=== PATIENT | female | born 1955 | race Native Hawaiian/Other Pacific Islander ===

== ENCOUNTER 2019-05-20 23:24 | Outpatient (CLI) | payer BC ==
[2019-05-20] MEDS ORDERED: LINZESS72 MCG PO (23:36)
[2019-05-20] MEDS ORDERED: ESTR1TAB13 PO (23:37)
[2019-05-20] MEDS ORDERED: HYDR25TA60 PO (23:39)
[2019-05-20] MEDS ORDERED: ONDANSETRON4 M2 PO (23:39)
[2019-05-20] MEDS ORDERED: LUNESTA3 MG PO (23:40)
== END 2019-05-20 23:27 | disposition short-term general hospital (02) ==
LOC: AMB 23:24
DX: R46.4 Slowness and poor responsiveness (principal); R47.89 Other speech disturbances; R29.810 Facial weakness; R56.9 Unspecified convulsions
CPT/HCPCS: A0425; A0427

== ENCOUNTER 2019-05-20 23:31 | Emergency (ER) | payer BC ==
[~2019-05-20] VITALS: Ht 165.1 cm; Wt 63.5 kg
[2019-05-20] MEDS ORDERED: LINZESS72 MCG PO (23:36)
[2019-05-20] MEDS ORDERED: ESTR1TAB13 PO (23:37)
[2019-05-20] MEDS ORDERED: ONDANSETRON4 M2 PO (23:39)
[2019-05-20] MEDS ORDERED: HYDR25TA60 PO (23:39)
[2019-05-20] MEDS ORDERED: LUNESTA3 MG PO (23:40)
[2019-05-20 23:48] LABS: PLATELET COUNT 329 K/uL (152-353)
[2019-05-21 00:09] LABS: POTASSIUM 3.7 mmol/L (3.6-5.2)
[2019-05-21 00:21] LABS: PARTIAL THROMBOPLASTIN TIME 23.7 SECONDS (24.5-33.6)
[2019-05-21 01:00] VITALS: BP 149/70; TEMP 98.4
== END 2019-05-21 01:00 | disposition home or self-care (01) ==
LOC: ED 23:31
PROVIDERS: Emergency Medicine
DX: I67.4 Hypertensive encephalopathy (principal)
CPT/HCPCS: 80053; 85027; 85610; 85730; 93005; 99285

== ENCOUNTER 2022-01-01 00:30 | Emergency (ER) | payer BC ==
[~2022-01-01] VITALS: Ht 165.1 cm; Wt 60.8 kg
[2022-01-01 00:30] VITALS: BP 168/65; TEMP 97.3
[~2022-01-01 00:30] MED LIST: ESTR1TAB13 PO; HYDR25TA60 PO; LINZESS72 MCG PO; LUNESTA3 MG PO; ONDANSETRON4 M2 PO
[2022-01-01 01:01] LABS: PLATELET COUNT 305 K/uL (152-353)
[2022-01-01 01:08] LABS: POTASSIUM 3.3 mmol/L (3.6-5.2)
== END 2022-01-01 02:00 | disposition home or self-care (01) ==
LOC: ED 00:30
PROVIDERS: Hospitalist
DX: K59.09 Other constipation (principal)
CPT/HCPCS: 36415; 80053; 85027; 99283

== ENCOUNTER 2022-07-16 18:31 | Outpatient (CLI) | payer BC ==
[2022-07-16 19:08] LABS: PLATELET COUNT 248 K/uL (152-353)
== END 2022-07-16 19:36 | disposition home or self-care (01) ==
LOC: LAB 18:31
PROVIDERS: ATTEND Family Medicine
DX: Z20.822 Contact with and (suspected) exposure to COVID-19 (principal)
CPT/HCPCS: 36415; 80053; 82150; 83690; 85027